=== PATIENT | female | born 1990 | race Caucasian/White ===

== ENCOUNTER 2016-09-05 10:06 | Emergency (ER) | payer OTHER ==
[~2016-09-05] VITALS: Wt 69.0 kg
[2016-09-05] MEDS ORDERED: D-ME473S18 PO (10:37)
[2016-09-05] MEDS ORDERED: AZIT250T94 PO (10:38)
--- NOTE | 2016-09-05 10:40 | ERD ---
ER Documentation Chief Complaint Date/Time DATE: 09/05/16 TIME: 10:39 Chief Complaint cough, runny nose, fever. 33 wks preg, denies abd pain HPI This 26-year-old female presents with fever, cough congestion for the last 4 days. She is approximately 33 weeks by dates. She denies abdominal pain, vaginal bleeding, chest pain or shortness of breath. ROS All systems reviewed and are negative except as per history of present illness. Medications Home Meds Active Scripts Azithromycin* (Zithromax*) 250 Mg Tablet, 250 MG PO .ZPACK DIRECTED, #6 TAB TAKE 500 MG (2 TABS) THE FIRST DAY THEN 250 MG (1 TAB) DAYS 2-5 Prov:DIPAK CALDERON MD 09/05/16 Dextromethorphan Hb-Promethazine Hcl (Promethazine DM Syrup) 473 Ml Syrup, 5 ML PO Q6H, #4 OZ Prov:DIPAK CALDERON MD 09/05/16 PMhx/Soc Medical and Surgical Hx: pt denies Medical Hx, pt denies Surgical Hx Hx Alcohol Use: No Hx Substance Use: No Smoking Status: Never smoker Physical Exam Vitals Vital Signs Date Time Temp Pulse Resp B/P Pulse Ox O2 Delivery O2 Flow Rate FiO2 09/05/16 10:08 98.4 97 20 120/56 99 Physical Exam Const: [] Alert, [id number] per Head: Atraumatic Eyes: Normal Conjunctiva ENT: Normal External Ears, Nose and Mouth. TMs and oropharynx normal. Neck: Full range of motion..~ No meningismus. Resp: Clear to auscultation bilaterally. No rales wheezing or retractions appreciated. Cardio: Regular rate and rhythm, no murmurs Abd: Soft, non tender, non distended. Normal bowel sounds Skin: No petechiae or rashes Back: No midline or flank tenderness Ext: No cyanosis, or edema Neur: Awake and alert Psych: Normal Mood and Affect Procedures/MDM Patient presents with URI symptoms last 4 days. Suggestive of an acute viral URI without evidence of respiratory distress or hypoxemia.. X-rays were deferred given state. Patient was discharged home with instructions to continue Tylenol for fever. She will be given Promethazine DM for cough as well. Patient will be provided prescription for Zithromax with instructions to hold 3-4 days and take for continued or worsening symptoms or productive sputum. She should otherwise return sooner for shortness breath, chest pain, vomiting, abdominal pain, vaginal bleeding, new or worsening symptoms. The patient was stable with no new complaints during the ER course. Clinically, there is no current evidence to suggest meningitis, sepsis, acute abdomen, pneumonia, acute coronary syndrome, pulmonary embolism, or any other emergent condition appearing to require further evaluation or hospitalization. The patient should certainly return for any new or worsening symptoms per the aftercare instructions. They should otherwise follow-up with her primary care doctor for reevaluation this week. Departure Diagnosis: Primary Impression: Upper respiratory infection URI type: unspecified URI Qualified Code: J06.9 - Upper respiratory tract infection, unspecified type Condition: Stable Patient Instructions: Acute Bronchitis, Uri, Viral, No Abx (Adult) Additional Instructions: Okay to hold antibiotics for 3-4 days. Take Tylenol every 4 hours 500 mg. Recheck otherwise for new or worsening symptoms. DIPAK CALDERON MD Sep 05, 2016 10:40
== END 2016-09-05 11:10 | disposition home or self-care (01) ==
LOC: FTE 10:06
DX: O99.513 Diseases of the respiratory system complicating pregnancy, third trimester (principal); J06.9 Acute upper respiratory infection, unspecified; Z3A.33 33 weeks gestation of pregnancy
CPT/HCPCS: 99284

== ENCOUNTER 2016-10-19 13:31 | Inpatient (IN) | payer OTHER ==
[~2016-10-19] VITALS: Ht 160 cm; Wt 73.6 kg
[~2016-10-19 13:31] MED LIST: AZIT250T94 PO; D-ME473S18 PO
[2016-10-19 14:43] VITALS: BP 120/65; PULSE 120; RESP 18; Ht 160 cm; Wt 73.6 kg
--- NOTE | 2016-10-19 15:15 | RADRPT ---
PROCEDURE: OB ultrasound for biophysical profile CLINICAL INDICATION: Contractions TECHNIQUE: Multiple sonographic images of the pelvis were obtained. Transabdominal view of the gr avid uterus are available for review. The images were reviewed on a PACS workstation. COMPARISON: None FINDINGS: breathing movement = 2/2 tone = 2/2 motion = 2/2 JUSTO = 2/2 JUSTO = 7.7 cm, consistent with borderline oligohydramnios. Single live intrauterine with cardiac activity. heart rate equals 144 beats p er minute. Presentation is cephalic The placenta is anterior. There is no evidence of placenta previa or placental abruption.. IMPRESSION: 1. Single viable intrauterine gestation. 2. Biophysical profile = 8/8. 3. JUSTO = 7.7 cm. RPTAT: AA .Champ Mendez MD, Date Time Electronically viewed and signed by .Champ Mendez MD, MD on 10/19/2016 15:14 .B/
--- NOTE | 2016-10-19 16:08 | RADRPT ---
PROCEDURE: US OB. CLINICAL INDICATION: Size and dates , contractions TECHNIQUE: Multiple sonographic images of the pelvis and gravid uterus were obtained. The images were reviewed on a PACS workstation. COMPARISON: No prior studies are available for comparison. FINDINGS: There is a single viable intrauterine gestation. Cardiac activity is present with 146 beats per min [place]. There is a vertex presentation. The placenta is anterior. There is no evidence for an abruption or placenta previa. Measurements were made in order to determine age. The results are as follows: BPD =9.4 cm HC =33.6 cm AC =36.3 cm FL =7.7 cm Estimated gestational age of approximately 39 weeks and 1 day based on ultrasound measurements. Clinical age: 39 weeks and 1 day. The estimated date of delivery is 10/25/16, based on ultrasound measurements. The EFW = 3825 g, 79.6%, based on LMP age. RPTAT: AA IMPRESSION: Single viable intrauterine gestation of approximately 39 weeks and 1 day based on ultrasound measur ements. .Basilio Mcnamara MD, Date Time Electronically viewed and signed by .Basilio Mcnamara MD, on 10/19/2016 16:07 .S/
--- NOTE | 2016-10-19 16:31 | HP ---
Date/Time of Note Date/Time of Note DATE: 10/19/16 TIME: 16:20 OB - History Hx of Present Free Text/Dictation @39+wks GA with Decreased movments ,CTXs ,JUSTO 7 : 1 Para: 0 Care: Good Care Obstetrical Complications: None Medical Complications: None Past Family/Social History * Past Medical, Surgical, Family and Obstetric Histories reviewed from chart. OB Admission Exam Vital Signs Vital Signs Vital Signs Date Time Temp Pulse Resp B/P Pulse Ox O2 Delivery O2 Flow Rate FiO2 10/19/16 14:43 97.7 120 18 120/65 18 Room Air Physical Exam Abdomen: WNL Extremities: Normal Cervical Dilatation: Fingertip Effacement: 50% Station: -1 Membranes: Intact Heart Rate: 140's Decelerations: No Decelerations Varibility: Moderate Contractions on Admission: 6-10 Minutes Apart OB Assessment/Plan Reason for admission: observation Plan: Expectant Management Other plan: The patient is being kept for Observation and Expectant management and Prolonged monitoring EFW> 3800 The plan discussed with private attending of the patient ,Dr.Joseph Sanabria and he agreed with plan A phone call was received from ,concerning the management of the patient..He was advised that the patient will be signed out to next Laborist and Dr.Joseph sanabria,attending of the casefor reevaluation and possible discharge or observation over night CHIRAG DAMIAN M.D. October 19, 2016 16:31
--- NOTE | 2016-10-19 17:11 | QN ---
Documentation Comment The tracing is reviewed some small variables overall the tracing is reassuring, patient is in early stage of labor. Given the fact that the patient is 39+wks ,admitted in early labor with decreased movements and JUSTO 7 EFW 3800 grams and favorable cervix. A phone call is made to and delivery is suggested As he is now in charge of the patient ,he will coordinate with the nurses for further orders CHIRAG DAMIAN M.D. October 19, 2016 17:11
[2016-10-19] MEDS ORDERED: METHYLERGONOVINE 0.2 MG INJ IM PRN (17:30)
[2016-10-19] MEDS ORDERED: OXYTOCIN 30 UNITS/LR 500 ML IV PRN (17:30)
[2016-10-19] MEDS ORDERED: IBUPROFEN 600 MG TAB PO PRN (17:30)
[2016-10-19] MEDS ORDERED: MISOPROSTOL 200 MCG TAB PR PRN (17:30)
[2016-10-19] MEDS ORDERED: CARBOPROST 250 MCG INJ IM PRN (17:30)
[2016-10-19] MEDS ORDERED: OXYTOCIN 30 UNITS/LR 500 ML IV SCH ×2 (17:30)
[2016-10-19] MEDS ORDERED: ACETAMINOPHEN/CODEINE #3 TAB PO PRN (17:30)
[2016-10-19] MEDS ORDERED: LIDOCAINE 1% (MPF) 30 ML INJ INJ PRN (17:30)
[2016-10-19] MEDS ORDERED: BUTORPHANOL 2 MG INJ IV PRN (17:30)
[2016-10-19] MEDS: LACTATED RINGER'S 1,000 ML IV SCH (17:32)
[2016-10-19 17:52] LABS: ADD SCAN DIFF NO
[2016-10-19 17:55] LABS: BASOPHILS % 0.4 % (0.0-2.0); EOSINOPHILS # 0.1 10^3/ul (0.0-0.5); EOSINOPHILS % 0.6 % (0.0-7.0); HEMATOCRIT 34.7 % (37.0-47.0); HEMOGLOBIN 11.1 g/dl (12.0-16.0); LYMPHOCYTES # 1.7 10^3/ul (0.8-2.9); LYMPHOCYTES % 20.2 % (15.0-51.0); MEAN CORPUSCULAR HEMOGLOBIN 28.6 pg (29.0-33.0); MEAN CORPUSCULAR VOLUME 89.4 fl (82.0-101.0); MEAN PLATELET VOLUME 10.6 fl (7.4-10.4); MONOCYTE # 0.6 10^3/ul (0.3-0.9); MONOCYTES % 7.2 % (0.0-11.0); NEUTROPHIL # 5.9 10^3/ul (1.6-7.5); NEUTROPHILS % 69.9 % (39.0-77.0); PLATELET COUNT 290 10^3/UL (140-415); RED BLOOD COUNT 3.88 10^6/ul (4.20-5.40); WHITE BLOOD COUNT 8.4 10^3/ul (4.8-10.8)
[2016-10-19 18:11] LABS: INR 0.92; PARTIAL THROMBOPLASTIN TIME 27.8 Sec (25.0-35.0); PROTIME 12.4 Sec (12.2-14.2)
--- NOTE | 2016-10-19 18:42 | TRIAGE ---
OB Triage Datetime Report Generated by CPN: 10/19/2016 18:42 Datetime: 10/19/2016 18:00 Labor Evaluation Frequency: 2-6 Monitor Mode: External Duration (sec)2399: 40-60 Quality: Strong Pattern: Normal: <= 5 Contractions in 10 Minutes Resting Tone [place]: Relaxed Heart Rate FHR Baseline Rate: 150 Monitor Mode: External US FHR Baseline Changes: No Baseline Change Variability: Moderate 6-25 bpm Accelerations: 15X15 Decelerations: Variable Category: Category II Pain Assessment Pain Scale: 4 Pain Presence: Intermittent Pain Type: Contraction Pain Location: Back Pain Goal: 2 Pain Relief Measures: Comfort Measures Datetime: 10/19/2016 17:30 Assessment Type: Admission Assessment Vaginal Bleeding: None Maternal Assessment Level of Consciousness: Fully Conscious DTR's/Clonus: DTRs 2+; No Clonus Headache: Denies Blurred Vision: No Respiratory Effort: Unlabored; Regular Rhythm; Equal Expansion Nausea/Vomiting: Denies RUQ Epigastric Pain: Denies Lower Extremities Edema: None Degree: None Upper Extremities Edema: None Degree: None Facial Edema: None Fall Risk Assessment History of Falling: (0) No Secondary Diagnosis: (0) No Ambulatory Aid: (0) Bedrest/Nurse Assist IV Therapy: (0) No Gait: (0) Normal/Bedrest/Immobile Mental Status: (0) Oriented to Own Ability Fall Score: 0 Fall Risk Score Definition: No Risk: No action required Labor Evaluation Frequency: 3-5 Duration (sec)2399: 40-60 Quality: Strong Pattern: Normal: <= 5 Contractions in 10 Minutes Resting Tone [place]: Relaxed Heart Rate FHR Baseline Rate: 150 Variability: Moderate 6-25 bpm Accelerations: 15X15 Decelerations: None Category: Category I Pain Assessment Pain Scale: 4 Pain Presence: Intermittent Pain Type: Contraction Pain Location: Back Pain Goal: 2 Membrane Status: Intact Datetime: 10/19/2016 15:58 Comments: U/S AT THE BEDSIDE Datetime: 10/19/2016 15:57 Labor Evaluation Frequency: 3-5 Monitor Mode: External Duration (sec)2399: 60-90 Quality: Strong Pattern: Normal: <= 5 Contractions in 10 Minutes Resting Tone [place]: Relaxed Heart Rate FHR Baseline Rate: 145 Monitor Mode: External US Variability: Moderate 6-25 bpm Accelerations: 15X15 Decelerations: None Category: Category I Datetime: 10/19/2016 14:26 EGA: 39.1 Arrived By: Ambulatory Arrived From: Home Datetime: 10/19/2016 13:54 Time of Arrival: 10/19/2016 13:27 Arrived By: Ambulatory Arrived From: Office Chief Complaint: VAGINAL PRESSURE Movement: Decreased Contractions: Irregular Rupture of Membranes: Denies Vaginal Bleeding: None Vaginal Discharge: Denies Recent Sexual Intercouse: Denies Abdominal Trauma: Not Applicable Patient Complaints: Contractions; Cramping Time Provider Notified: 10/19/2016 14:00 Provider Notified: DR. DUQUE Initial Plan: SVE, NST, EFM IV HYDRATION Vaginal Exam Dilatation (cms): 0.0 Effacement (%): 50 Station: -3 Exam By: STACIE Vaginal Bleeding: Normal Show Cervix, Consistency: Soft Cervix, Position: Anterior
[2016-10-19] MEDS ORDERED: LACTATED RINGER'S 1,000 ML IV PRN (20:00)
[2016-10-19] MEDS: OXYTOCIN 30 UNITS/LR 500 ML IV SCH (21:13)
[2016-10-20] MEDS: LACTATED RINGER'S 1,000 ML IV SCH ×4 (00:21→21:57)
[2016-10-21] MEDS: OXYTOCIN 30 UNITS/LR 500 ML IV SCH ×3 (03:48→20:28)
[2016-10-21] MEDS: LACTATED RINGER'S 1,000 ML IV SCH ×2 (05:31→15:50)
[2016-10-21] MEDS ORDERED: CEFAZOLIN 2 GM/50 ML (PMX) 50 ML IVPB SCH (10:00)
[2016-10-21] MEDS ORDERED: ONDANSETRON 4 MG INJ IV STA (10:11)
[2016-10-21] MEDS ORDERED: CITRIC ACID/SODIUM CITRATE 15 ML CUP PO ONE (10:30)
[2016-10-21] MEDS ORDERED: FENTAnyl 50 MCG/ML VIAL ONE (10:51)
[2016-10-21] MEDS ORDERED: OXYTOCIN 10 UNIT INJ ONE (10:51)
[2016-10-21] MEDS ORDERED: METOCLOPRAMIDE 10 MG INJ ONE (10:51)
[2016-10-21] MEDS ORDERED: morphine SULFATE/PF (10 MG/10 ML) INJ ONE (10:51)
[2016-10-21] MEDS ORDERED: PHENYLephrine (100 MCG/ML) 5ML SYG ONE (10:52)
[2016-10-21] MEDS ORDERED: DEXAMETHASONE 4 MG/ML 1 ML INJ ONE (11:25)
--- NOTE | 2016-10-21 11:43 | HP ---
Date/Time of Note Date/Time of Note DATE: 10/21/16 TIME: 11:42 OB - History Hx of Present Free Text/Dictation Care: Good Care Ultrasounds: Normal mid trimester US Obstetrical Complications: None Medical Complications: None Past Family/Social History * Past Medical, Surgical, Family and Obstetric Histories reviewed from chart. OB Admission Exam Vital Signs Vital Signs Vital Signs Date Time Temp Pulse Resp B/P Pulse Ox O2 Delivery O2 Flow Rate FiO2 10/19/16 14:43 97.7 120 18 120/65 18 Room Air Physical Exam HEENT: WNL Heart: Rhythm Normal Lungs: Clear, Equal Abdomen: WNL Extremities: Normal Reflexes: Normal Last 72 hours Lab Results CBC & BMP 10/19/16 17:35 OB Assessment/Plan Reason for admission: active labor, induction of labor, other (uterine ctxs and variable decleration, AFI7) Plan: Induction STUART DUQUE MD October 21, 2016 11:43
--- NOTE | 2016-10-21 11:45 | OPR ---
Operative Report Planned Procedure Free Text/Dictation term preg. failed induction Procedure date October 21, 2016 Performed by: STUART DUQUE MD Assisting provider: TRENA BUI MD Anesthesia Type: spinal Procedure Description Under satisfactory spinal anesthesia, the patient was prepped and draped and placed in a supine position, tilted to the left. Pfannenstiel incision was made , carried through the subcutaneous tissue. Bleeders brought under control with electrocautery. Fascia incised to the length of the incision. Rectus muscles from the fascia, divided midline. Peritoneum exposed, entered through a transverse incision. Exploration of abdomen revealed gravid uterus. Bladder flap was developed. Transverse incision was made in the lower segment of the uterus. Amniotic sac ruptured. clear [] amniotic fluid noted. Nasal oropharyngeal suction was performed. The baby was handed to the team for immediate attention. The placenta was delivered manually intact. Uterine cavity was cleaned with wet sponge and drainage established. Uterus closed in 2 layers using one monocryl in continuous fashion. Peritoneal cavity irrigated with warm saline. Sponge, needle and instrument count reported to be correct. Abdominal peritoneum closed with [] continuously. Rectus muscle approximated with []. Fascia closed with one monocryl and skin closed with ab. Estimated blood loss 700mL. Post-Procedure Findings: Live Baby [], Apgars [] and [], weight [], position [], [] presentation []cord. Physician Certification I, the undersigned physician, hereby certify that I have discussed the procedure described in this consent form with this patient (or the patient's legal access service representative), including: * The risk and benefits of the procedure; * Any adverse reactions that may reasonably be expected to occur; * Any alternative efficacious methods of treatment which may be medically viable ; * The potential problems that may occur during recuperation; * Potential for blood transfusion and associated risks/benefits; and * Any research or economic interest I may have regarding this treatment. I further certify that the patient/legally responsible person was encouraged to ask question and that all questions were answered. STUART DUQUE MD October 21, 2016 11:45
[2016-10-21 15:00] VITALS: BP 122/71; PULSE 81; RESP 17
[2016-10-21] MEDS ORDERED: NA PHOSPHATE/BIPHOS 133 ML ENEMA PR PRN (16:00)
[2016-10-21] MEDS ORDERED: ZOLPIDEM 5 MG TAB PO PRN (16:00)
[2016-10-21] MEDS ORDERED: OXYTOCIN 30 UNITS/LR 500 ML IV PRN (16:00)
[2016-10-21] MEDS ORDERED: METHYLERGONOVINE 0.2 MG INJ IM PRN (16:00)
[2016-10-21] MEDS ORDERED: DIPHENHYDRAMINE 50 MG INJ IV PRN (16:00)
[2016-10-21] MEDS ORDERED: NACL 0.9% 3 ML SYG IV SCH (16:00)
[2016-10-21] MEDS ORDERED: MISOPROSTOL 200 MCG TAB PR PRN (16:00)
[2016-10-21] MEDS ORDERED: CARBOPROST 250 MCG INJ IM PRN (16:00)
[2016-10-21] MEDS ORDERED: ONDANSETRON 4 MG INJ IV PRN (16:00)
[2016-10-21] MEDS ORDERED: morphine 2 MG INJ IV PRN ×2 (16:00)
[2016-10-21] MEDS ORDERED: NALOXONE (0.4 MG/ML) INJ IV PRN (16:00)
[2016-10-21] MEDS ORDERED: LANOLIN 7 GM TUBE TOP PRN (16:00)
[2016-10-21] MEDS ORDERED: ACETAMINOPHEN/CODEINE #3 TAB PO PRN (16:00)
[2016-10-21] MEDS: KETOROLAC 30 MG INJ IV PRN (16:05)
[2016-10-21 20:05] VITALS: BP 111/61; PULSE 89; RESP 18
[2016-10-22] MEDS: LACTATED RINGER'S 1,000 ML IV SCH ×3 (00:40→15:50)
[2016-10-22 03:50] VITALS: BP 102/51; PULSE 93; RESP 22
[2016-10-22] MEDS: KETOROLAC 30 MG INJ IV PRN ×2 (05:17→10:02)
[2016-10-22 08:15] VITALS: BP 94/52; PULSE 87; RESP 18
[2016-10-22] MEDS: OXYCODONE/ACETAMINOPHEN (5/325) TAB PO PRN ×2 (11:50→22:56)
--- NOTE | 2016-10-22 13:58 | PN ---
Date/Time of Note Date/Time of Note DATE: 10/22/16 TIME: 13:56 Assessment/Plan Lines/Catheters IV Catheter Type (from Nrsg): Peripheral IV Assessment/Plan Chief Complaint/Hosp Course Postop day #1 status post Patient stable and afebrile Problems: Assessment/Plan DC [place] Advance diet as tolerated Encouraged to ambulate Continue with pain meds as needed CBC ordered this morning Subjective 24 Hr Interval Summary Postop day #1 status post low transverse section Constitutional: no complaints Feeding: advancing diet Pain Control: mild Exam/Review of Systems Vital Signs Vitals Vital Signs Date Time Temp Pulse Resp B/P Pulse Ox O2 Delivery O2 Flow Rate FiO2 10/22/16 08:15 98.6 87 18 94/52 Room Air 10/19/16 14:43 18 Intake and Output 10/21/16 10/21/16 10/22/16 15:00 23:00 07:00 Intake Total 6 ml 930 ml 1125 ml Output Total 700 ml 400 ml 1000 ml Balance -694 ml 530 ml 125 ml Exam Constitutional: No alert, No distress, No frail, No non-verbal, No obese, No oriented, No other, No well developed Psych: nl mood/affect, no complaints Head: atraumatic, normocephalic Eyes: EOMI, nl conjunctiva, nl lids, nl sclera ENMT: mucosa pink and moist, nl external ears & nose, nl lips & teeth, nl nasal mucosa & septum Neck: non-tender, supple Respiratory: No clear to auscultation, No congested cough, No crackles/rales, No diminished breath sounds, No intercostal retraction, No labored breathing, No normal air movement, No other, No respirations, No tactile fremitus, No wheezing Cardiovascular: No S3, No S4, No bruits, No diastolic murmur, No edema, No gallop, No irregular rhythm, No jugular venous distention (JVD), No murmurs/ extra sounds, No nl pulses, No other, No regular rate and rhythm, No rub, No systolic murmur Gastrointestinal: No ascites, No bowel sounds, No distended, No firm, No hepatomegaly, No mass, No nl liver, spleen, No non-tender, No other, No rebound or guarding, No soft, No splenomegaly, No surgical scars, No tender Genitourinary - Female: No CMT, No CVA tenderness, No nl adnexae, No nl external genitalia, No other, No uterus Musculoskeletal: No joint tenderness, No muscle tone, No muscle weakness, No nl extremities to inspection, No nl gait and stance, No other, No range of motion, No spine non-tender, No swelling Extremities: No calf tenderness, No clubbing, No cyanosis, No edema, No normal pulses, No other, No palpable cord, No pitting pedal edema, No tenderness Neurological: RETURNED [employer] REPA[employer]ER II-XII intact, nl mental status, nl speech, nl strength Skin: nl turgor, rash or lesions Lymph: nl lymph nodes Results Result Diagram: 10/19/16 1735 CARLOS EDUARDO LOU MD October 22, 2016 13:58
[2016-10-22] MEDS: IBUPROFEN 800 MG TAB PO SCH ×2 (14:29→21:12)
[2016-10-22 14:56] LABS: ADD SCAN DIFF NO
[2016-10-22 14:57] LABS: BASOPHILS % 0.2 % (0.0-2.0); EOSINOPHILS # 0.1 10^3/ul (0.0-0.5); EOSINOPHILS % 0.7 % (0.0-7.0); HEMATOCRIT 26.9 % (37.0-47.0); HEMOGLOBIN 8.6 g/dl (12.0-16.0); LYMPHOCYTES # 3.1 10^3/ul (0.8-2.9); LYMPHOCYTES % 25.5 % (15.0-51.0); MEAN CORPUSCULAR HEMOGLOBIN 28.7 pg (29.0-33.0); MEAN CORPUSCULAR VOLUME 89.7 fl (82.0-101.0); MEAN PLATELET VOLUME 10.6 fl (7.4-10.4); MONOCYTES % 8.1 % (0.0-11.0); NEUTROPHIL # 7.8 10^3/ul (1.6-7.5); NEUTROPHILS % 63.9 % (39.0-77.0); PLATELET COUNT 274 10^3/UL (140-415); WHITE BLOOD COUNT 12.2 10^3/ul (4.8-10.8)
[2016-10-22 15:55] VITALS: BP 100/72; PULSE 80; RESP 18
[2016-10-22 19:45] VITALS: BP 104/60; PULSE 90; RESP 17
[2016-10-23 05:11] VITALS: BP 115/76; PULSE 81; RESP 20
[2016-10-23] MEDS: IBUPROFEN 800 MG TAB PO SCH ×3 (05:40→21:33)
[2016-10-23 08:00] VITALS: BP 118/59; PULSE 89; RESP 18
--- NOTE | 2016-10-23 10:41 | QN ---
Documentation Comment doing well. vss abd soft incision c&d CPM STUART DUQUE MD October 23, 2016 10:41
--- NOTE | 2016-10-23 10:42 | PD.PPDC ---
[facility] Discharge Instruction Condition Patient Condition: Good Diet Diet: Resume Regular Diet Activity/Restrictions Activity: Normal Activity May Shower Restrictions: No Exercising No Lifting No Driving No Sexual Activity Nothing in the Vagina No 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
[2016-10-23 16:00] VITALS: BP 125/64; PULSE 87; RESP 18
[2016-10-23 19:58] VITALS: BP 125/59; PULSE 89; RESP 18
[2016-10-24 04:00] VITALS: BP 125/60; PULSE 77; RESP 18
[2016-10-24] MEDS: IBUPROFEN 800 MG TAB PO SCH ×2 (05:37→14:00)
[2016-10-24 09:00] VITALS: BP 116/51; PULSE 83; RESP 17
[2016-10-24] MEDS ORDERED: MEASLES,MUMPS,RUBELLA VACCINE INJ SC* ONE (09:00)
[2016-10-24] MEDS ORDERED: DIPHTH/TET/ACEL PERTUSS (ADULT) 0.5 ML VIAL IM* ONE (09:00)
--- NOTE | 2016-10-24 14:22 | PN ---
Date/Time of Note Date/Time of Note DATE: 10/24/16 TIME: 14:19 OB Subjective Subjective Subjective Status post for failed induction done for oligohydramnios Postoperative day #3. Past flatus. Denies any nausea vomiting. Ambulated. Had one episode of dizziness when she got up this morning fast from the bed that resolved. Denies any dizziness or lightheadedness or shortness of breath or chest pain when she is ambulating. She is breast-feeding. Had a history of anxiety disorder currently be seen by psychiatric social worker supervisor. OB Objective Objective Objective General appearance: Alert and oriented 4 patient does not appear to be in any acute distress. Abdomen: Soft, appropriate tenderness in the incision. No abnormal discharge from the incision. Incision: Clean, dry and intact Extremities: No calf tenderness, no click no edema Lungs: Clear to auscultation bilaterally CV: RRR Hematology - 72 Hrs Test 10/22/16 14:00 White Blood Count 12.210^3/ul (4.8-10.8) #H Red Blood Count 3.0010^6/ul (4.20-5.40) #L Hemoglobin 8.6g/dl (12.0-16.0) #L Hematocrit 26.9% (37.0-47.0) #L Mean Corpuscular Volume 89.7fl (82.0-101.0) Mean Corpuscular Hemoglobin 28.7pg (29.0-33.0) L Mean Corpuscular Hemoglobin Concent 32.0g/dl (32.0-37.0) Red Cell Distribution Width 13.0% (11.5-14.5) Platelet Count 87183^3/UL (140-415) Mean Platelet Volume 10.6fl (7.4-10.4) H Neutrophils % 63.9% (39.0-77.0) Lymphocytes % 25.5% (15.0-51.0) Monocytes % 8.1% (0.0-11.0) Eosinophils % 0.7% (0.0-7.0) Basophils % 0.2% (0.0-2.0) Nucleated Red Blood Cells % 0.0/100WBC (0.0-0.0) Neutrophils # 7.810^3/ul (1.6-7.5) H Lymphocytes # 3.110^3/ul (0.8-2.9) H Monocytes # 1.010^3/ul (0.3-0.9) H Eosinophils # 0.110^3/ul (0.0-0.5) Basophils # 0.010^3/ul (0.0-0.1) Nucleated Red Blood Cells # 0.010^3/ul (0.0-0.0) OB Assessment/Plan Other Assessment: Status post section at 39+ weeks due to oligohydramnios and failed induction Postoperative day #3 Postop anemia. Asymptomatic. History of anxiety disorder, status post psychiatric social worker supervisor consult. Currently stable. Patient met the criteria for discharge. Today. Other plan: DC home. Continue iron and vitamin daily Follow-up with OB clinic in 1 week and 6 weeks for staple removal and check Follow-up of anxiety disorder with her therapist as outpatient. Patient had been followed by a therapist for anxiety disorder in the past. Currently stable ALVAREZ SWANSON MD October 24, 2016 14:22
--- NOTE | 2016-10-24 16:08 | DS ---
Date/Time of Note Date/Time of Note DATE: 10/24/16 TIME: 16:06 Obstetrical Discharge Record Final Diagnosis Final Diagnosis: Term delivered Section Section: Primary Complications Other (Oligohydramnios) Rupture of Membranes: No Condition on Discharge Physical Assessment Voiding: Yes Bowel Movement: Yes Breast: Soft, non-tender Fundus: Firm Abdomen and Incision: Clean dry and intact Calf Tenderness: No Patient Condition: Good ALVAREZ SWANSON MD October 24, 2016 16:08
[2016-10-24] MEDS: OXYCODONE/ACETAMINOPHEN (5/325) TAB PO PRN (16:37)
== END 2016-10-24 17:20 | disposition home or self-care (01) | DRG 765 ==
LOC: OBT 13:31 → L-D 13:32 → OBT 16:15 → L-D 18:24 → PP1 10-21 14:50
PROVIDERS: ADMIT Obstetrics & Gynecology; ATTEND Obstetrics & Gynecology
PROC: 10D00Z1 Extraction of Products of Conception, Low, Open Approach (ICD-10-PCS; principal; 2016-10-21 11:00)
DX: O36.8130 Decreased fetal movements, third trimester, not applicable or unspecified (principal); O41.03X0 Oligohydramnios, third trimester, not applicable or unspecified; Z3A.39 39 weeks gestation of pregnancy; Z37.0 Single live birth; O61.9 Failed induction of labor, unspecified
CPT/HCPCS: 76815; 76818; 85025; 85610; 85730; 86592; 86900; 86901; 87340; 90715; 99464; G0463; J0690; J1100; J1885; J2274; J2370; J2405; J2590; J2765; J3010; J7120